=== PATIENT | male | born 1935 ===

== ENCOUNTER → 2019-04-30 | Outpatient (CLI) | payer OTHER, MEDICARE ==
[2019-04-30 12:27] LABS: BUN/Creatinine Ratio 20.8; Calcium 9.6 mg/dL (8.5-10.1); Potassium 4.4 mmol/L (3.5-5.1)
== END | disposition home or self-care (01) ==
LOC: LAB 11:10
DX: I12.9 Hypertensive chronic kidney disease with stage 1 through stage 4 chronic kidney disease, or unspecified chronic kidney disease (principal); N18.2 Chronic kidney disease, stage 2 (mild)
CPT/HCPCS: 36415; 80048